=== PATIENT | female | born 1990 ===

== ENCOUNTER 2024-07-10 08:02 | Outpatient (AMB) | payer BC, SELFPAY ==
--- OUTSIDE RECORDS SUMMARY | 2024-07-10 08:07 | XMS_ITS | Encounter Summary ---
Author Organization [facility] Address [address] [place] [address] Care Team Providers Care Unified Communications Architect Name Role Phone Johnathan Napier Primary Care Provider [phone] Reason for Visit * Reason Comments Gynecologic Exam Annual Encounter Details Date Type Department Care Team (Latest Contact Info) Description 06/24/2024 10:00 AM EST Office Visit Obstetrics & Gynecology - [address] [address] Lynette Rajput, [address] [address] Encounter for well woman exam with routine gynecological exam (Primary Dx); Screening breast examination; Screening for cervical cancer; Screen for STD (sexually transmitted disease) Social History Tobacco Use Types Packs/Day Years Used Date Smoking Tobacco: Former Cigarettes Q uit: 06/03/2011 Smokeless Tobacco: Never Tobacco Cessation:Counseling Given: Not Answered Alcohol Use Standard Drinks/Week Comments No 0 (1 standard drink = 0.6 oz pur e alcohol) Sex and Gender Information Value Date Recorded Sex Assigned at Not on file Gender Identity Not on file Sexual Orientation Not on file Job Start Date Occupation Industry Not on file Not on file Not on file documented as of this encounter Last Filed Vital Signs Vital Sign Reading Time Taken Comments Blood Pressure 125/84 06/24/2024 9:47 AM EST Pulse 96 06/24/2024 9:47 AM EST Temperature - - Respiratory Rate - - Oxygen Saturation - - Inhaled Oxygen Concentration - - Weight 72.6 kg (160 lb) 06/24/2024 9:47 AM EST Height 149.9 cm (4' 11 ) 06/24/2024 9:47 AM EST Body Mass Index 32.32 06/24/2024 9:47 AM EST documented in this encounter Progress Notes * Torie Hutchison MA - 06/24/2024 10:00 AM EST Annual exam Pap 03/20/21 wnl/hpv neg * Lynette Rajput CNM - 06/24/2024 10:00 AM EST Chief Complaint Patient presents with Gynecologic Exam Annual Subjective Joanne Lopez is a 34 y.o. female here for a routine ANNUAL [employer]IL[employer] exam. She has the following concerns: Spotting between periods. Joanne noticed this past summer she would get her period for 5-7 days,then one week of no bleeding then spotting for one month and subsequently no menses for multiple months. She denies pain with bleeding. She reports she was told she had a small fibroid in 2016. Currently sexually active with a male. Desires all STI screening today. Denies substance use, denies DV. Lives with and children. Joanne sustained a fall at the roller rink this past Saturday and is experiencing L arm pain and swelling as a result. Is using a sling intermittently and keeping a eye on the arm. She was started on a new RA type medication and not able to take NSAIDs at this time Gynecologic History Patient's last menstrual period was 06/07/2024 (exact date). Contraception: tubal ligation Last Pap: 2020 . Results were: normal Last mammogram: N/A. Obstetric History OB History Para Term AB Living 3 3 1 1 3 SAB IAB Ectopic Multiple Live Births 3 # Outcome Date GA Lbr Alexander/2nd Weight Sex Type Anes PTL Lv 3 Para 06/18/19 37w0d 3062 g (108 oz) F CS-LTranv Spinal TIM Comments: Apg 8-9-9 2 Term 04/09/13 38w5d 3289 g (116 oz) F CS-LTranv Spinal N TIM Comments: korin injections for proph. - SROM Complications: Failure to Progress in First Stage 1 10/20/07 35w6d 2200 g (77.6 oz) M CS-LTranv Spinal TIM Comments: unremarkable until PPROM, failure to progress, meconinum fluid Complications: Failure to Progress in First Stage, premature rupture of membranes, Failure to progress in labor, depression The following portions of the patient's chart were reviewed in this encounter and updated as appropriate: Tobacco Allergies Surg Hx OB Status Fam Hx Soc Hx Review of Systems A comprehensive review of systems was negative.. GENERAL: No malaise, significant weight loss or fever HEENT: No changes in hearing or vision, nose bleeds or other nasal problems NECK: No lumps, goiter, pain or significant neck swelling RESPIRATORY: No cough, wheezing or shortness of breath CARDIOVASCULAR: No chest pain, leg swelling or palpitations BREAST: no lumps, discharge, pain or change in skin GI: No abdominal discomfort, blood in stools or black stools/ negative for change in bowel habits. : No dysuria, frequency or incontinence RAILCAR FOREMAN: +painless spotting MUSCULOSKELETAL: L arm pain secondary to fall this past Saturday SKIN: No lesions, rash or itching PSYCH: No sleep disturbance, mood disorder or recent psychosocial stressors. HEMATOLOGY/LYMPHOLOGY No prolonged bleeding, easy bruisability or swollen nodes ENDOCRINE: No cold or heat intolerance, polyuria, polydipsia or goiter. NEURO: No persistent headache, syncope, seizures, weakness or numbness Objective . Visit Vitals BP 125/84 Pulse 96 Ht 1.499 m (59 ) Wt 72.6 kg (160 lb) LMP 06/07/2024 (Exact Date) BMI 32.32 kg/m?? OB Status Having periods Smoking Status Former BSA 1.68 m?? APPEARANCE: Alert and in no acute distress, healthy, cooperative LUNG: Assessment: No increased work of breathing or signs of respiratory distress BREAST: normal without suspicious masses, skin or nipple changes or axillary nodes. ABDOMEN: soft, non-tender, without organomegaly or palpable masses LYMPHATICS: no inguinal adenopathy RAILCAR FOREMAN: Normal external genitalia and urethra Vagina without abnormality or discharge Normal cervix Uterus with normal size, position, and consistency Normal adnexa without tenderness RECTAL: Not examined BACK: No pain to palpation with good flexion and extension EXTREMITIES: Extremities warm and well perfused without cyanosis, or edema NEURO: Awake, alert and oriented x 3 SKIN: Skin color, texture, turgor normal. No rashes or lesions. This is to document that Joanne Lopez was given the opportunity to have a electrolysis investigator present duringa sensitive examination at today's visit. She declines this offer of a electrolysis investigator. Assessment/Plan Encounter Diagnoses Name Primary? Encounter for well woman exam with routine gynecological exam Yes Screening breast examination Screening for cervical cancer Screen for STD (sexually transmitted disease) Orders Placed This Encounter Procedures Chlamydia trachomatis and Neisseria gonorrhoeae molecular study Hepatitis C antibody HIV 1,2 antibody, p24 antigen with reflex to differentiation Treponema pallidum antibody with reflex to RPR and particle agglutination Pap Smear During the visit, the following areas of concern were addressed: Monitoring of the menstrual cycle.If heavier periods, will tang for further evaluation Regular exercise Healthy lifestyle STDs and strategies to avoid exposure Breast self-examination on a regular basis Smoking cessation NA Substance Use None Domestic Violence Regular gynecologic examinations and frequency of Pap smears RTO one year for ANNUAL or prn . This visit was done with Owen Moreno, student marketing analytics manager, I was present during the visit and agree with above Lynette Rajput CNM Note about provider documentation: If you are the patient named in this chart and are reviewing your medical notes, please note that medical documentation is often written with abbreviations and medical terminology, and directed for other providers who may be involved in your care as well. Documentation is critical to record what has happened, what test were ordered, and how they are interpreted w ith the resulting diagnoses. These notes have been made available for patient review but not specifically written for the patient. Important health information is always given to my patients and clinical instructions. Please review your after visit summary and/or contact our clinical staff if you have any questions. . documented in this encounter Plan of Treatment Not on file documented as of this encounter Procedures Procedure Name Priority Date/Time Associated Diagnosis Comments HPV WITH REFLEX GENOTYPE Routine 06/24/2024 10:19 AM EST Encounter for well woman exam with routine gynecological exam CHLAMYDIA TRACHOMATIS AND NEISSERIA GONORRHOEAE PCR Routine 06/24/2024 10:19 AM EST Encounter for well woman exam with routine gynecological exam Screen for STD (sexually transmitted disease) PAP SMEAR Routine 06/24/2024 10:19 AM EST Encounter for well woman exam with routine gynecological exam documented in this encounter Results * Treponema pallidum antibody with reflex to RPR and particle agglutination (06/24/2024 11:01 AM EST) T. Pallidum Antibodies Negative Negative LAB CHEMISTRY METHOD 06/24/2024 2:41 PM EST [facility] Blood Venous blood specimen / Unknown Venipuncture / Unknown 06/24/2024 11:01 AM EST 06/24/2024 11:31 AM EST [facility] LAB BLOOD ORDERABLES Performing Organization Address [facility] Co de Phone Number [facility] [address] [place] [address], * HIV 1,2 antibody, p24 antigen with reflex to differentiation (06/24/2024 11:01 AM EST) HIV Combo AB/AG Negative Negative LAB CHEMISTRY METHOD 06/24/2024 3:10 PM EST [facility] Blood Venous blood specimen / Unknown Venipuncture / Unknown 06/24/2024 11:01 AM EST 06/24/2024 11:31 AM EST Narrative [facility] - 06/24/2024 3:10 PM EST This assay is a 4th generation assay allowing for earlier detection of HIV infection by detecting the presence of the HIV-1 p24 antigen as well as the traditional antibodies to HIV type 1 (including group O) and type 2. ??Use of a 4th generation assay is the current CDC recommendation for HIV screening. [facility] LAB BLOOD ORDERABLES Performing Organization Address [facility] Co de Phone Number [facility] [address] [place] [address], * Hepatitis C antibody (06/24/2024 11:01 AM EST) Pathologist [facility] Hepatitis C Antibody Negative Negative LAB CHEMISTRY METHOD 06/24/2024 3:10 PM EST [facility] Blood Venous blood specimen / Unknown Venipuncture / Unknown 06/24/2024 11:01 AM EST 06/24/2024 11:31 AM EST Lynette Rajput [facility] BLOOD ORDERABLES Performing Organization Address City/[facility]/ZIP Co de Phone Number [facility] [address] [place] [address], [place] [phone] * HPV with reflex genotype (06/24/2024 10:19 AM EST) [facility] HPV Negative Negative LAB MICROBIOLOGY METHOD 06/26/2024 8:48 AM EST [facility] Brushing/Spatula Cervix uteri structure / Unknown 06/24/2024 10:19 AM EST 06/25/2024 6:09 AM EST Lynette Rajput [facility] MOLECULAR DIAGNO STICS ORDERABLES Performing Organization Address [facility] Co de Phone Number [facility] [address] [place] [address], [place] [phone] * Chlamydia trachomatis and Neisseria gonorrhoeae molecular study (06/24/2024 10:19 AM EST) [facility] Neisseria gonorrhoeae PCR Negative Negative LAB MOLECULAR DIAGNOSTICS METHOD 06/25/2024 8:28 AM EST [facility] Chlamydia trachomatis PCR Negative Negative LAB MOLECULAR DIAGNOSTICS METHOD 06/25/2024 8:28 AM EST [facility] Swab Cervix uteri structure / Unknown Non-blood Collection / Unknown 06/24/2024 10:19 AM EST 06/24/2024 4:17 PM EST Lynette Rajput [facility] MICROBIOLOGY - G ENERAL ORDERABLES [facility] [address] [place] [address], [place] [phone] * Pap Smear (06/24/2024 10:19 AM EST) Interpretation Negative for intraepithelial lesion or malignancy 06/29/2024 9:45 AM EST [facility] General Categorization Negative 06/29/2024 9:45 AM EST [facility] LMP 06/07/2024 06/29/2024 9:45 AM EST [facility] Specimen Adequacy Satisfactory for evaluation, endocervical/lizarraga sformation zone component present 06/29/2024 9:45 AM [facility] Pap Methodology Liquid Based Pap Test 06/29/2024 9:45 AM EST [facility] Disclaimer The Pap test is a screening test which carries an inherent false negative rate. These test results should be correlated with the patient's clinical findings and history. This Pap test was processed using an automated screening system. Technical cytopathology services provided by [facility], at [address] [place] [id number] (CLIA # [id number]/Ivan Vargas MD, Third Rail Installer.) 06/29/2024 9:45 AM EST [facility] Console Pap Interpretation Reported 06/29/2024 9:45 AM [facility] Brushing/Spatula Cervix uteri structure / Unknown 06/24/2024 10:19 AM EST 06/25/2024 6:08 AM EST Lynette Rajput CNM LAB CYTOLOGY ORDERAB LES [facility] [address] [place] [address], documented in this encounter Visit Diagnoses Diagnosis Encounter for well woman exam with routine gynecological exam- Primary Screening breast examination Other screening breast examination Screening for cervical cancer Screening for malignant neoplasm of the cervix Screen for STD (sexually transmitted disease) Screening examination for venereal disease documented in this encounter Historical Medications * This list may reflect changes made after this encounter. Medication Sig Dispensed Refills Start Date End Date LORazepam (ATIVAN) 0.5 mg tablet Take 1 tablet (0.5 mg total) by mouth 2 times daily as needed. Max Daily Amount: 1 mg 09/12/2022 cyclobenzaprine (FLEXERIL) 5 mg tablet 06/21/2024 tirzepatide, weight loss, (ZEPBOUND) 2.5 mg/0.5 mL injection Inject 0.5 mL (2.5 mg total) under the skin. 01/22/2024 meloxicam (MOBIC) 15 mg tablet 1 tablet (15 mg total) daily. 06/22/2020 atorvastatin (LIPITOR) 20 mg tablet Take 1 tablet (20 mg total) by mouth daily. 09/11/2022 added in this encounter Additional Health Concerns Assessment Noted Time PHQ-9 Depression Total Score: 7 06/17/19 25 2:36 PM EST documented as of this encounter Care Teams Unified Communications Architect Relationship Specialty Start Date End Date Johnathan Napier PA [address] [place] [address] PCP - General Internal Medicine 01/16/22 documented as of this encounter
--- OUTSIDE RECORDS SUMMARY | 2024-07-10 08:07 | XMS_ITS | Clinical Summary ---
Author Organization [facility] Address [address] [place] [address] Care Team Providers Care Fish Boning Machine Feeder Name Role Phone Johnathan Napier Primary Care Provider [phone] Source Comments PLEASE NOTE, if this patient is a minor, it may be UNLAWFUL to discuss sensitive information that is contained in these records (such as FAMILY PLANNING, MENTAL HEALTH or SUBSTANCE ABUSE) with the minor patient's parent or other person without the patient's specific authorization.[facility] Allergies No known active allergies Medications calcium carbonate-vitami n D3 1,000 mg-20 mcg (800 unit) tab Take by mouth 12/17/19 21 Active azithromycin (ZITHROMAX) 250 mg tabletIndication s:acute exacerbation obstr chr bronchitis S. pneumoniae Take 2 tabs by mouth today, followed by 1 tab by mouth for four more days. Indications: severe episode of chronic bronchitis due to Streptococcus pneumoniae 6 Tablet 08/15/19 23 Active aspirin [address] tablet TAKE 1 TABLET BY MOUTH DAILY 30 Tablet 2 08/21/19 23 Active atorvastatin (LIPITOR) 20 mg tablet Take 1 Tablet by mouth once daily 90 Tablet 1 09/12/19 23 Active LORazepam (ATIVAN) 0.5 mg tablet Take 1 Tablet by mouth 2 (two) times daily as needed for anxiety or sleep 12 Tablet 09/13/19 23 Active aspirin [address] tablet Take 1 Tablet by mouth daily 05/16/20 22 Active butalbitaL-aceta wdxap-bur-sst (FIORICET WITH CODEINE) [id number] mg per capsuleIndicatio ns:Other migraine without status migrainosus, not intractable Take 1 Capsule by mouth every 4 (four) hours as needed for headaches 30 Capsule 09/27/19 23 Active tretinoin (RETIN-A) 0.01 % gelIndications:C omedonal acne APPLY TOPICALLY TO THE AFFECTED AREA EVERY NIGHT AT BEDTIME 45 g 1 11/14/19 23 Active semaglutide (OZEMPIC) 0.25 mg or 0.5 mg (2 mg/3 mL) pen injectorIndicati ons:Class 1 obesity due to excess calories with serious comorbidity and body mass index (BMI) of 30.0 to 30.9 in adult Inject 0.25 mg into the skin once a week 6 mL 12/31/19 24 Active tirzepatide, weight loss, 2.5 mg/0.5 mL pnijIndications: weight loss management for obese patient (bmi >= 30) Inject 2.5 mg into the skin once a week . Initial: 2.5 mg once weekly for 4 weeks, then increase to 5 mg once weekly. May further increase dose in 2.5 mg/week increments every 4 weeks, if needed (maximum weekly dose: 15 mg/week). Indications: weight loss management for an obese person 4 mL 3 01/22/20 24 Active Active Problems Problem Noted Date Diagnosed Date Food insecurity 12/31/2023 Financial difficulties 12/31/2023 Housing problems 12/31/2023 Class 1 obesity 08/30/2021 Anxiety and depression 11/28/2015 Pain in joint, multiple sites 04/20/2015 Night sweats 04/20/2015 Immunizations Name Administration Dates Next Due Flu, Preservative Free 04/12/2021,03/28/2017, INFLUENZA, SEASONAL, INJECTABLE 03/05/20 16,05/25/2015,04/05/2014,04/05/2014, 02/23/2011,02/23/2011 MMR (MMR II/Priorix) 05/15/2016,08/19/2015 PPD 08/19/2015 TDAP 04/13/2019,04/13/2019,11/28/2015 Family History Medical History Relation Name Comments Asthma Brother Diabetes Mellitus II Brother Lupus Maternal Aunt Asthma Maternal Grandfather Cancer Maternal Grandfather colon Cancer Maternal Grandmother lymphom a Asthma Mother Lupus Mother Lupus Other 1 cousin Cancer Other 2 breast, cousin Diabetes Mellitus II Sister Relation Name Status Comments Brother Maternal Aunt Maternal Grandfather Maternal Grandmother Mother Alive Other 1 Other 2 Sister Social History Tobacco Use Types Packs/Day Years Used Date Smoking Tobacco: Former Cigarettes Smokeless Tobacco: Never Tobacco Cessation:Counseling Given: Not Answered Alcohol Use Standard Drinks/Week Comments Yes 0 (1 standard drink = 0.6 oz pur e alcohol) 1-2 times a month Social Connections Answer Date Recorded Connectedness 1 12/31/2023 Financial Resource Strain Answer Date R ecorded Financial Resource Strain 2 2023 Stress Answer Date Recorded Stress 1 12/31/2023 Physical Activity Answer Date Recorded Physical Activity 0 01/25/2019 Food Insecurity Answer Date Recorded Food 2 12/31/2023 Transportation Needs Answer Date Record ed Transportation 1 12/31/2023 Housing Stability Answer Date Recorded Housing 2 12/31/2023 Safety and Environment Answer Date Sj rded Safety 0 12/25/2022 Utilities Answer Date Recorded Utilities 2 12/31/2023 Employment Answer Date Recorded Employment 0 01/25/2019 Comments No Sex and Gender Information Value Date Recorded Sex Assigned at Female 10/17/2017 7:48 AM PDT Legal Sex Female 7:12 AM PDT Gender Identity Female 10/17/2017 7:48 AM PDT Sexual Orientation Straight 10/17/2017 7: 48 AM PDT 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 on 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 Not on file Not on file Last Filed Vital Signs Vital Sign Reading Time Taken Comments Blood Pressure 133/88 12/31/2023 8:41 AM EDT Pulse 94 12/31/2023 8:41 AM EDT Temperature 36.6 ??C (97.8 ??F) 12/31/2023 8:41 AM ED T Respiratory Rate 20 12/31/2023 8:41 AM EDT Oxygen Saturation 97% 12/31/2023 8:41 AM EDT Inhaled Oxygen Concentration - - Weight 74.4 kg (164 lb) 12/31/2023 8:41 AM EDT Height 149.9 cm (4' 11 ) 12/31/2023 8:41 AM EDT Body Mass Index 33.12 12/31/2023 8:41 AM EDT Plan of Treatment Health Maintenance Due Date Last Done Comments HPV Screening 1989 Pap + HPV 1989 HIV Screening 2004 Cervical Cancer Screening 08/08/2018 Pap Smear 08/08/2018 08/09/2015 Lipid Screening 09/11/2023 09/10/2022, 02/09/2022, 02/15/2021, Additional history exists Relationship Safety Screening/Counseling 12/26/2023 12/25/2022, 09/11/2022, 05/14/2022, Additional history exists [id number] ( season) 2024 05/23/2021, 07/07/2020, 06/09/2020 Imm-Influenza (#1) 2024 03/22/2023, 1 06/12/2020, 04/16/2019, Additional history exists Depression Monitoring 04/01/2024 12/31/2023 , 12/25/2022, 09/11/2022, Additional history exists Alcohol and Drug Screen 06/03/2024 12/31/19 24, 12/25/2022, 09/11/2022, Additional history exists Annual Preventive Care Visit 12/30/2024, 05/14/2022, 02/08/2021, Additional history exists Hypertension Screening (#1) 12/30/2024 Tobacco Screening 12/30/2024 12/31/2023, 02/08/2021 Diabetes Screening 09/10/2025 09/10/2022, 0 09/10/2022, 07/27/2022, Additional history exists Imm-DTaP/Tdap/Td (4 - Td or Tdap) 04/13/2029 04/13/2019, 04/13/2019, 11/28/2015 Cervical Ablation/Cold-Knife Conization Discontinued Cervical Cryotherapy Discontinued Colposcopy Discontinued Endometrial Biopsy Discontinued Excision/Leep Discontinued HPV Genotyping Discontinued Hepatitis C Screening Discontinued Imm-Hepatitis B Discontinued Vaginal Pap Discontinued Vulvoscopy Discontinued Procedures Procedure Name Priority Date/Time Associated Diagnosis Comments OTHER ORDERS SCANNED DOCUMENT 06/26/2024 3:00 AM EST OTHER ORDERS SCANNED DOCUMENT 06/15/2024 3:00 AM EST OTHER ORDERS SCANNED DOCUMENT 06/15/2024 3:00 AM EST OTHER ORDERS SCANNED DOCUMENT 06/02/2024 3:00 AM EST REFERRAL SCANNED DOCUMENT 05/21/2024 3:00 AM EST OTHER ORDERS SCANNED DOCUMENT 05/19/2024 3:00 AM EST OTHER ORDERS SCANNED DOCUMENT 05/19/2024 3:00 AM EST OTHER ORDERS SCANNED DOCUMENT 04/20/2024 3:00 AM EST OTHER ORDERS SCANNED DOCUMENT 04/20/2024 3:00 AM EST COMPREHENSIVE METABOLIC PANEL Routine 07/27/2022 9:29 AM EST Jaundice PFO (patent foramen ovale) Other fatigue LIPID PANEL Routine 07/27/2022 9:29 AM EST from Last 3 Months or Most Recently Relevant to Health Maintenance Results * OTHER ORDERS SCANNED DOCUMENT (06/26/2024 3:00 AM EST) Only the most recent of8 resultswithin the time period is included. 06/26/2024 3:00 AM EST us Johnathan Quyen PA SCAN OTHER ORDERS Final Result * REFERRAL SCANNED DOCUMENT (05/21/2024 3:00 AM EST) 05/21/2024 3:00 AM EST us Johnathan Quyen PA SCAN REFERRAL Final Result * (ABNORMAL) LIPID PANEL (07/27/2022 9:29 AM EST) Pathologist [facility] CHOLESTEROL, TOTAL 287(H) <200 mg/dL [facility] HDL CHOLESTEROL 63 > OR = 50 mg/dL [facility] TRIGLYCERIDES 266(H) <150 mg/dL [facility] Comment: If a non-fasting specimen was collected, consider repeat triglyceride testing on a fasting specimen if clinically indicated. Jalen et al. J. of Clin. Lipidol. 2015;9:129-169. LDL-CHOLESTEROL 177(H) 99 mg/dL (calc) [facility] Comment: Reference range: <100 Desirable range <100 mg/dL for primary prevention; ?? <70 mg/dL for patients with CHD or diabetic patients with > or = 2 CHD risk factors. LDL-C is now calculated using the Jonas calculation, which is a validated novel method providing better accuracy than the Friedewald equation in the estimation of LDL-C. Dorian DANIEL et al. DAVID. 2013;310(19): 8214-6374 (http://education.RingRang/faq/RXA246) CHOL/HDLC RATIO 4.6 <5.0 (calc) [facility] NON-HDL CHOLESTEROL 224(H) <130 mg/dL (calc) [facility] Comment: Non-HDL level > or = 220 is very high and may indicate genetic familial hypercholesterolemia (FH). Clinical assessment and measurement of blood lipid levels should be considered for all first-degree relatives of patients with an FH diagnosis. For patients with diabetes plus 1 major ASCVD risk factor, treating to a non-HDL-C goal of <100 mg/dL (LDL-C of <70 mg/dL) is considered a therapeutic option. 07/27/2022 9:29 AM EST 07/27/2022 9:29 AM EST [facility] - BLOOD DRAW Final Result Performing Organization Address City/State/[facility] Co de Phone Number [employer] [address] [address], [facility] [address] [place] [address] ([facility] [place] [address] * COMPREHENSIVE METABOLIC PANEL (07/27/2022 9:29 AM EST) [facility] GLUCOSE 91 65 - 99 mg/dL [facility] Comment: ?Fasting reference interval UREA NITROGEN (BUN) 12 7 - 25 mg/dL [facility] CREATININE (blood) 0.67 0.50 - 0.97 mg/dL [facility] EGFR 118 > OR = 60 mL/min/1 .73m2 [facility] Comment: The eGFR is based on the CKD-EPI 2020 equation. To calculate the new eGFR from a previous Creatinine or Cystatin C result, go to https://www.kidney.org/professionals/ kdoqi/gfr%5Fcalculator BUN/CREATININE RATIO NOT APPLICABLE [facility] SODIUM 140 135 - 146 mmol/L [facility] POTASSIUM 5.2 3.5 - 5.3 mmol/L [facility] CHLORIDE 104 98 - 110 mmol/L [facility] CARBON DIOXIDE 26 20 - 32 mmol/L [employer] [facility] CALCIUM 9.7 8.6 - 10.2 mg/dL [employer] [facility] PROTEIN, TOTAL 7.7 6.1 - 8.1 g/dL [employer] [facility] ALBUMIN 4.6 3.6 - 5.1 g/dL [employer] [facility] GLOBULIN 3.1 1.9 - 3.7 g/dL (calc) [facility] [facility] ALBUMIN/GLOBUL IN RATIO 1.5 1.0 - 2.5 (calc) [facility] BILIRUBIN, TOTAL 0.4 0.2 - 1.2 mg/dL [employer] [facility] ALKALINE PHOSPHATASE 62 31 - 125 U/L [employer] [facility] AST 20 10 - 30 U/L [employer] [facility] ALT 23 6 - 29 U/L [employer] [facility] Blood Blood / Unknown 07/27/2022 9 :29 AM EST 07/27/2022 9:29 AM EST [facility] BLOOD DRAW Edited Result - Final [facility] [facility] [address] [address], [employer] [facility] [address] [place] [address] from Last 3 Months or Most Recently Relevant to Health Maintenance Insurance [address] [facility] [facility] Member Subscriber Plan / Payer (Ef fective 2023-Present) Name:John Joanne Relation to Subscriber:Spouse Name:LASHONDA WALTER Date of :1986 (Home) Address: [place] [address] Payer ID:[id number] Type:Indemnity Address: [address] [place] [address] Care Teams Fish Boning Machine Feeder Relationship Specialty Start Date End Date Johnathan Napier PA [address] [place] [address] PCP - General Internal Medicine 01/08/19
--- NOTE | 2024-07-10 08:08 | MHC.OFFVIS ---
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 Patient reports that she took her kids to [place] and fell hitting her hand and elbow . She was seen at urgent care on 06/21/23. Currently she is unable to fully straighten the arm and is having pain upon palpitation. she has increased sharp pain with certain moverments.Denies numbness and tingling. 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 She states on 06/20/24 she was ice skating and she fell back and landed on the elbow. The pain has improved over the last 2.5 weeks. She has improved ROM but some stiffness with rotation of the hand and wrist. She has more pain with extension. She takes IBU with from relief. 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 Review of Systems Const All systems reviewed & are unremarkable except as noted in HPI and below Physical Exam Vital Signs: BMI result Body Mass Index 30.9 Const General: cooperative and no acute distress Orientation/consciousness: patient oriented x3 Resp Effort & Inspection: normal respiratory effort and able to speak in complete sentences Cardio Peripheral pulses: Peripheral pulses 2+ throughout Neuro General: patient oriented x3 Extrem Other: left elbow skin intact, no effusion, full ROM; however pain with given passive extension. No pain with supination or pronation. Neurovascularly intact. Results Reviewed Results Reviewed: X-rays of the left elbow obtained in the office today are negative for any acute fractures or dislocations. Assessment & Plan Assessment & Plan (1) Left elbow contusion: Code(s): S50.02XA - Contusion of left elbow, initial encounter Category: Medical (2) Stiffness of left elbow joint: Code(s): M25.622 - Stiffness of left elbow, not elsewhere classified Category: Medical Plan At this time I recommend a course of occupational therapy to work on range of motion and gentle strength training. I encouraged her to work on these exercises at home until she is able to get in with occupational therapy. It did demonstrate some exercises with her in the office today. I also gave her a prescription for ibuprofen to take 3 times a day for 2 weeks. 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 If symptoms persist or worsen she can contact our office otherwise follow up as needed. Orders: Orders XR elbow LT min 3V Today M25.522 - Pain in left elbow OT Evaluation and Treatment Today M25.622 - Stiffness of left elbow, not elsewhere classified, S50.02XA - Contusion of left elbow, initial encounter Medications: New ibuprofen 800 mg PO Q8H PRN 90 tabs 3RF pain 30 days S52.209D - Unspecified fracture of shaft of unspecified ulna, subsequent encounter for closed fracture with routine healing Coding Level of Care Code New Pt Level 3 (12366) Complex EM visit Add On G2211 Diagnoses Left elbow contusion S50.02XA Stiffness of left elbow joint M25.622
--- OUTSIDE RECORDS SUMMARY | 2024-07-10 08:08 | XMS_ITS | Encounter Summary ---
Author Organization [facility] Address [address] [place] [address] Care Team Providers Care Edge Kitter Name Role Phone Johnathan Napier Primary Care Provider [phone] Encounter Details Date Type Department Care Team (Late st Contact Info) Description 07/31/2022 Interim Notes [address] [id number] Johnathan Napier PA [address] [place] [address] Social History Tobacco Use Types Packs/Day Years Used Date Smoking Tobacco: Former Cigarettes Smokeless Tobacco: Never Alcohol Use Standard Drinks/Week Comments Yes 0 (1 standard drink = 0.6 oz pur e alcohol) 1-2 times a month Social Connections Answer Date Recorded Social Connections and Isolation 1 05/14/2022 Financial Resource Strain Answer Date R ecorded Financial Resource Strain 1 2021 Stress Answer Date Recorded Stress 1 05/14/2022 Physical Activity Answer Date Recorded Physical Activity 0 01/25/2019 Food Insecurity Answer Date Recorded Food 1 05/14/2022 Transportation Needs Answer Date Record ed Transportation 1 05/14/2022 Housing Stability Answer Date Recorded Housing 1 05/14/2022 Safety and Environment Answer Date Sj rded Safety 1 05/14/2022 Utilities Answer Date Recorded Utilities 1 05/14/2022 Employment Answer Date Recorded Employment 0 01/25/2019 Comments No Sex and Gender Information Value Date Recorded Sex Assigned at Female 10/17/2017 7:48 AM PDT Legal Sex Female 7:12 AM PDT Gender Identity Female 10/17/2017 7:48 AM PDT Sexual Orientation Straight 10/17/2017 7: 48 AM PDT 

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
[2024-07-10 08:09] VITALS: BMI 30.9
--- OUTSIDE RECORDS SUMMARY | 2024-07-10 08:09 | XMS_ITS | Encounter Summary ---
Author Organization [facility] Address [address] [place] [address] Care Team Providers Care Sld Teacher Name Role Phone Johnathan Napier Primary Care Provider [phone] Reason for Visit * Reason Comments Individual Counseling initial assessment /1st session Encounter Details Date Type Department Care Team (Late st Contact Info) Description 10/24/2015 Interim Notes [id number] [place] [id number] Use, Do Not, [id number] [place] [address] Social History Tobacco Use Types Packs/Day Years Used Date Smoking Tobacco: Former Cigarettes Smokeless Tobacco: Never Alcohol Use Standard Drinks/Week Comments Yes 0 (1 standard drink = 0.6 oz pur e alcohol) 1-2 times a month Comments No Sex and Gender Information Value Date Recorded Sex Assigned at Female 10/17/2017 7:48 AM PDT Legal Sex Female 7:12 AM PDT Gender Identity Female 10/17/2017 7:48 AM PDT Sexual Orientation Straight 10/17/2017 7: 48 AM PDT 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
== END 2024-07-10 08:44 | disposition home or self-care (01) ==
PROVIDERS: PCP Physician Assistant; Visit Provider Physician Assistant
DX: S50.02XA Contusion of left elbow, initial encounter (principal); M25.622 Stiffness of left elbow, not elsewhere classified
CPT/HCPCS: 99203

== ENCOUNTER 2024-07-10 08:02 | Outpatient (REF) | payer BC, SELFPAY ==
--- NOTE | ~2024-07-10 | XR_ITS ---
EXAMINATION: XR ELBOW 3 VIEWS LEFT HISTORY: M25.522 - Pain in left elbow COMPARISON: There are no prior studies available for comparison. FINDINGS: Three views of the left elbow are submitted. Osseous mineralization is normal. There is no fracture or dislocation. The joint spaces are preserved. The soft tissues are unremarkable. There is no joint effusion. XR/XR elbow LT min 3V IMPRESSION: Unremarkable examination of the left elbow. Electronically signed by: Chilango Escalera MD 07/10/2024 08:41 AM EST
--- OUTSIDE RECORDS SUMMARY | 2024-07-10 08:42 | XMS_ITS | Clinical Summary ---
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 on file Not [...] 12/26/2023 12/25/2022, 09/11/2022, 05/14/2022, Additional history exists [id number] ( season) 2024 05/23/2021, 07/07/2020, 06/09/2020 Imm-Influenza [...] LIPID PANEL (07/27/2022 9:29 AM EST) Pathologist [facility] CHOLESTEROL, TOTAL 287(H) <200 mg/dL [employer] [facility] HDL CHOLESTEROL 63 > OR = 50 mg/dL [employer] [facility] TRIGLYCERIDES 266(H) <150 mg/dL [employer] [facility] Comment: If a non-fasting specimen was collected, consider repeat triglyceride testing on a fasting specimen if clinically indicated. Jalen et al. J. of Clin. Lipidol. 2015;9:129-169. LDL-CHOLESTEROL 177(H) 99 mg/dL (calc) [employer] [facility] Comment: Reference range: <100 Desirable range <100 mg/dL for primary prevention; ?? <70 mg/dL for patients with CHD or diabetic patients with > or = 2 CHD risk factors. LDL-C is now calculated using the Jonas calculation, which is a validated novel method providing better accuracy than the Friedewald equation in the estimation of LDL-C. Dorian DANIEL et al. DAVID. 2013;310(19): 4602-8445 (http://education.[employer]/faq/AMM908) CHOL/HDLC RATIO 4.6 <5.0 (calc) [facility] NON-HDL CHOLESTEROL 224(H) <130 mg/dL (calc) [facility] Comment: Non-HDL level > or = 220 [...] BLOOD DRAW Final Result Performing Organization Address City/State/[facility] Co de Phone Number [employer] [address] [address], [facility] [address] [place] [address] ([facility]) [place] [address] * COMPREHENSIVE METABOLIC PANEL (07/27/2022 9:29 AM EST) [facility] GLUCOSE 91 65 - 99 mg/dL [facility] Comment: ?Fasting reference interval UREA NITROGEN (BUN) 12 7 - 25 mg/dL [facility] CREATININE (blood) 0.67 0.50 - 0.97 mg/dL [facility] EGFR 118 > OR = 60 mL/min/1 .73m2 [facility] Comment: The eGFR is based on the CKD-EPI 2020 equation. To calculate the new eGFR from a previous Creatinine or Cystatin C result, go to https://www.kidney.org/professionals/ kdoqi/gfr%5Fcalculator BUN/CREATININE RATIO NOT APPLICABLE [facility] SODIUM 140 135 - 146 mmol/L [facility] POTASSIUM 5.2 3.5 - 5.3 mmol/L [facility] CHLORIDE 104 98 - 110 mmol/L [facility] CARBON DIOXIDE 26 20 - 32 mmol/L [facility] CALCIUM 9.7 8.6 - 10.2 mg/dL [facility] PROTEIN, TOTAL 7.7 6.1 - 8.1 g/dL [facility] ALBUMIN 4.6 3.6 - 5.1 g/dL [facility] GLOBULIN 3.1 1.9 - 3.7 g/dL (calc) [facility] ALBUMIN/GLOBUL IN RATIO 1.5 1.0 - 2.5 (calc) [facility] BILIRUBIN, TOTAL 0.4 0.2 - 1.2 mg/dL [facility] ALKALINE PHOSPHATASE 62 31 - 125 U/L [facility] AST 20 10 - 30 U/L [facility] ALT 23 6 - 29 U/L [facility] Blood Blood / Unknown 07/27/2022 9 :29 AM EST 07/27/2022 9:29 AM EST [facility] - BLOOD DRAW Edited Result - Final [facility] [address] [address], [place] [address] [place] [address] from Last 3 Months or Most Recently Relevant to Health Maintenance Insurance [address] [facility] Member Subscriber Plan / Payer (Ef fective 2023-Present) Name:John Joanne Relation to Subscriber:Spouse Name:LASHONDA AWLTER Date of :1986 (Home) Address: [place] [address] Payer ID:[id number] Type:Indemnity Address: [address] [place] [address] Care Teams Senior Sql Server Developer Relationship Specialty Start Date End Date Johnathan Napier PA [address] [place] [address] PCP - General Internal Medicine 01/08/19
--- OUTSIDE RECORDS SUMMARY | 2024-07-10 08:42 | XMS_ITS | Encounter Summary ---
Author Organization [facility] Address [address] [place] [address] Care Team Providers Care Safety And Health Consultant Name Role Phone Johnathan Napier Primary Care Provider [phone] Reason for Visit * Reason Comments Gynecologic Exam Annual Encounter Details Date Type Department Care Team (Latest Contact Info) Description 06/24/2024 10:00 AM EST Office Visit Obstetrics & Gynecology - [address] [address] Lynette Rajput, [address] [address] Encounter for well woman exam with routine [...] y.o. 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 She has the following concerns: Spotting [...] habits. : No dysuria, frequency or incontinence ROLLER MACHINE OPERATOR: +painless spotting MUSCULOSKELETAL: L arm pain secondary [...] or palpable masses LYMPHATICS: no inguinal adenopathy ROLLER MACHINE OPERATOR: Normal external genitalia and urethra Vagina without [...] was given the opportunity to have a c developer present duringa sensitive examination at today's visit. She declines this offer of a c developer. Assessment/Plan Encounter Diagnoses Name Primary? Encounter for [...] visit was done with Owen Moreno, student whey department operator, I was present during the visit and [...] LAB CHEMISTRY METHOD 06/24/2024 2:41 PM EST [facility] Blood Venous blood specimen / Unknown Venipuncture / Unknown 06/24/2024 11:01 AM EST 06/24/2024 11:31 AM EST [facility] LAB BLOOD ORDERABLES Performing Organization Address [facility] Co de Phone Number [facility] [address] [place] [address], * HIV 1,2 antibody, p24 antigen with reflex to differentiation (06/24/2024 11:01 AM EST) HIV Combo AB/AG Negative Negative LAB CHEMISTRY METHOD 06/24/2024 3:10 PM EST [facility] Blood Venous blood specimen / Unknown Venipuncture / Unknown 06/24/2024 11:01 AM EST 06/24/2024 11:31 AM EST Narrative [facility] - 06/24/2024 3:10 PM EST This assay is a 4th generation assay allowing for earlier detection of HIV infection by detecting the presence of the HIV-1 p24 antigen as well as the traditional antibodies to HIV type 1 (including group O) and type 2. ??Use of a 4th generation assay is the current CDC recommendation for HIV screening. [facility] LAB BLOOD ORDERABLES Performing Organization Address [facility] [place]/[facility] Co de Phone Number [facility] [address] [place] [address], * Hepatitis C antibody (06/24/2024 11:01 AM EST) Pathologist [facility] Hepatitis C Antibody Negative Negative LAB CHEMISTRY METHOD 06/24/2024 3:10 PM EST [facility] Blood Venous blood specimen / Unknown Venipuncture / Unknown 06/24/2024 11:01 AM EST 06/24/2024 11:31 AM EST Lynette Rajput [facility] BLOOD ORDERABLES Performing Organization Address City/[facility]/ZIP Co de Phone Number [facility] [address] [place] [address], [place] [phone] * HPV with reflex genotype (06/24/2024 10:19 AM EST) [facility] [place] HPV Negative Negative LAB MICROBIOLOGY METHOD 06/26/2024 8:48 AM EST [facility] Brushing/Spatula Cervix uteri structure / Unknown 06/24/2024 10:19 AM EST 06/25/2024 6:09 AM EST Lynette Rajput [facility] MOLECULAR DIAGNO STICS ORDERABLES Performing Organization Address [facility] Co de Phone Number [facility] [address] [place] [address], [place] [phone] * Chlamydia trachomatis and Neisseria gonorrhoeae molecular study (06/24/2024 10:19 AM EST) [facility] [place] Neisseria gonorrhoeae PCR Negative Negative LAB MOLECULAR DIAGNOSTICS METHOD 06/25/2024 8:28 AM EST [facility] Chlamydia trachomatis PCR Negative Negative LAB MOLECULAR DIAGNOSTICS METHOD 06/25/2024 8:28 AM EST [facility] Swab Cervix uteri structure / Unknown Non-blood Collection / Unknown 06/24/2024 10:19 AM EST 06/24/2024 4:17 PM EST Lynette Rajput [facility] MICROBIOLOGY - G ENERAL ORDERABLES [facility] [address] [place] [address], [place] [phone] * Pap Smear (06/24/2024 10:19 AM EST) Interpretation Negative for intraepithelial lesion or malignancy 06/29/2024 9:45 AM EST [facility] General Categorization Negative 06/29/2024 9:45 AM EST [facility] LMP 06/07/2024 06/29/2024 9:45 AM EST [facility] Specimen Adequacy Satisfactory for evaluation, endocervical/lizarraga sformation zone component present 06/29/2024 9:45 AM [facility] Pap Methodology Liquid Based Pap Test 06/29/2024 9:45 AM EST [facility] Disclaimer The Pap test is a screening test which carries an inherent false negative rate. These test results should be correlated with the patient's clinical findings and history. This Pap test was processed using an automated screening system. Technical cytopathology services provided by [facility], at [address] [place] [address] (CLIA # [id number]/Ivan Vargas MD, Park Interpretive Ranger.) 06/29/2024 9:45 AM EST [facility] Console Pap Interpretation Reported 06/29/2024 9:45 AM [facility] Brushing/Spatula Cervix uteri structure / Unknown 06/24/2024 10:19 AM EST 06/25/2024 6:08 AM EST Lynette Rajput CNM LAB CYTOLOGY ORDERAB LES [facility] [address] [place] [address], documented in this encounter Visit Diagnoses Diagnosis [...] documented as of this encounter Care Teams Safety And Health Consultant Relationship Specialty Start Date End Date Johnathan Napier PA [address] [place] [address] PCP - General Internal Medicine 01/16/22 documented as of this encounter
--- OUTSIDE RECORDS SUMMARY | 2024-07-10 08:44 | XMS_ITS | Encounter Summary ---
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
--- OUTSIDE RECORDS SUMMARY | 2024-07-10 08:44 | XMS_ITS | Clinical Summary ---
Author Organization [facility] Address [address] [place] [address] Phone Care Team Providers Care Oven Technician Name Role Phone Johnathan Napier Primary Care Provider [phone] Allergies No known active allergies Medications Medication [...] avenue would be to be evaluated at [facility] by my colleagues Dr. Saba or Dr. Baldwin. Class 1 obesity 08/30/2021 Fibromyalgia 11/28/2018 Overview (04/20/2024): pt was rx'd amitriptyline and gabapentin . 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 Pt has no current complaints Anxiety and depression 11/28/2015 Night sweats 04/20/2015 Pain in joint, multiple sites 04/20/2015 Encounters Date Type Department Care Team Description 06/24/2024 10:00 AM EST Office Visit Obstetrics & Gynecology - [address] [phone] Lynette Rajput CNM Encounter for well woman [...] Comments Fibromyalgia 2016 DX:Fibromyalgia; COMMENT: managed by supervisor plating and point assembly Osteoarthritis 2017 DX:Osteoarthriti s Post depression 2007 [...] membranes,Failure to progress in labor, depression Delivery Location:[facility] Comments: unr emarkable until PPROM, failure to progress, meconinum fluid 2012 Term 38w 5d 3289 g (116 oz) F CS-LT ranv Spinal N Livin g 8 9 md jaun Complications:Failure to Pro daniel in First Stage Delivery Location:[facility] Comments:korin inject ions for proph. - SROM 2019 Para 37w 0d 3062 g (108 oz) F CS-LT ranv Spinal Livjose alejandro g Dr. Enmanuel may Delivery Location:[facility] Comments:Apg 8-9-9 Last Filed Vital Signs [...] LAB CHEMISTRY METHOD 06/24/2024 3:10 PM EST [facility] Blood Venous blood specimen / Unknown Venipuncture / Unknown 06/24/2024 11:01 AM EST 06/24/2024 11:31 AM EST Lynette Rajput [facility] BLOOD ORDERABLES Performing Organization Address [facility] Co de Phone Number [facility] [address] [place] [address], * HIV 1,2 antibody, p24 antigen with reflex to differentiation (06/24/2024 11:01 AM EST) HIV Combo AB/AG Negative Negative LAB CHEMISTRY METHOD 06/24/2024 3:10 PM EST [facility] Blood Venous blood specimen / Unknown Venipuncture / Unknown 06/24/2024 11:01 AM EST 06/24/2024 11:31 AM EST Narrative [facility] - 06/24/2024 3:10 PM EST This assay is a 4th generation assay allowing for earlier detection of HIV infection by detecting the presence of the HIV-1 p24 antigen as well as the traditional antibodies to HIV type 1 (including group O) and type 2. ??Use of a 4th generation assay is the current CDC recommendation for HIV screening. Lynette Rajput [facility] BLOOD ORDERABLES Performing Organization Address [facility] de Phone Number [facility] [address] [place] [address], * Treponema pallidum antibody with reflex to RPR and particle agglutination (06/24/2024 11:01 AM EST) T. Pallidum Antibodies Negative Negative LAB CHEMISTRY METHOD 06/24/2024 2:41 PM EST [facility] Blood Venous blood specimen / Unknown Venipuncture / Unknown 06/24/2024 11:01 AM EST 06/24/2024 11:31 AM EST [facility] BLOOD ORDERABLES [facility] [address] [place] [address], * HPV with reflex genotype (06/24/2024 10:19 AM EST) HPV Negative Negative LAB MICROBIOLOGY METHOD 06/26/2024 8:48 AM EST [facility] Brushing/Spatula Cervix uteri structure / Unknown 06/24/2024 10:19 AM EST 06/25/2024 6:09 AM EST Lynette Rajput CNM LAB MOLECULAR DIAGNO STICS ORDERABLES Performing Organization Address [facility]/ZIP Co de Phone Number [facility] [address] [place] [address], * Chlamydia trachomatis and Neisseria gonorrhoeae molecular study (06/24/2024 10:19 AM EST) [facility] Neisseria gonorrhoeae PCR Negative Negative LAB MOLECULAR DIAGNOSTICS METHOD 06/25/2024 8:28 AM EST [facility] Chlamydia trachomatis PCR Negative Negative LAB MOLECULAR DIAGNOSTICS METHOD 06/25/2024 8:28 AM EST [facility] Swab Cervix uteri structure / Unknown Non-blood Collection / Unknown 06/24/2024 10:19 AM EST 06/24/2024 4:17 PM EST Lynette Rajput CNM LAB MICROBIOLOGY - G ENERAL ORDERABLES [facility] [address] [place] [address], * Pap Smear (06/24/2024 10:19 AM EST) Pathologist [facility] Interpretation Negative for intraepithelial lesion or malignancy 06/29/2024 9:45 AM EST [facility] General Categorization Negative 06/29/2024 9:45 AM [facility] LMP 06/07/2024 06/29/2024 9:45 AM [facility] Specimen Adequacy Satisfactory for evaluation, endocervical/lizarraga sformation zone component present 06/29/2024 9:45 AM [facility] Pap Methodology Liquid Based Pap Test 06/29/2024 9:45 AM [facility] Disclaimer The Pap test is a screening test which carries an inherent false negative rate. These test results should be correlated with the patient's clinical findings and history. This Pap test was processed using an automated screening system. Technical cytopathology services provided by [facility], at [address] [place] [address] (CLIA # [id number]/Ivan Vargas MD, Computer Aided Drafter.) 06/29/2024 9:45 AM [facility] Console Pap Interpretation Reported 06/29/2024 9:45 AM [facility] Brushing/Spatula Cervix uteri structure / Unknown 06/24/2024 10:19 AM EST 06/25/2024 6:08 AM EST Lynette MARIANO LAB CYTOLOGY ORDERAB LES [facility] [address] [place] [address], * Lipid panel (07/27/2022) Triglycerides 0 mg/dL Comment:No interpretation Cholesterol 0 mg/dL Comment:No interpretation HDL 0 mg/dL Comment:No interpretation LDL Cholesterol 0 mg/dL Comment:No interpretation Blood Venous blood specimen / Unknown Historical Provider LAB BLOOD ORDERAB LES from Last 3 Months or Most Recently Relevant to Health Maintenance Care Teams Oven Technician Relationship Specialty Start Date End Date Johnathan Napier PA [address] [place] [address] PCP - General Internal Medicine 01/16/22
--- OUTSIDE RECORDS SUMMARY | 2024-07-10 08:45 | XMS_ITS | Encounter Summary ---
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
== END 2024-07-10 08:03 | disposition home or self-care (01) ==
LOC: HO.HOSX 08:02
PROVIDERS: PCP Physician Assistant; Visit Provider Physician Assistant
DX: M25.522 Pain in left elbow (principal)
CPT/HCPCS: 73080

== ENCOUNTER → 2024-07-10 08:24 | Outpatient (BNV) | payer BC, SELFPAY | PROVIDERS: PCP Physician Assistant; Visit Provider Radiology Diagnostic Radiology | DX: M25.522 Pain in left elbow (principal) | CPT/HCPCS: 73080 ==